=== PATIENT | male | born 1985 | race African-American/Black ===

== ENCOUNTER 2017-06-25 18:03 | Emergency (ER) | payer OTHER ==
[~2017-06-25] VITALS: Ht 170.2 cm; Wt 81.6 kg
--- NOTE | ~2017-06-25 | CR213 ---
[facility] A Service of [facility] & [facility] RADIOLOGY TEXT RESULTS PATIENT: ELIAS CONNORS LOCATION: CFTX : 81 UNIT #: [id number] AGE: [address]: Elana Tim SEX: M ORDER DR: [id number] [facility] [address] [place], [place] [address] [id number] E MR#: [id number] Acc #: [id number] NAME: ELIAS CONNORS : 1985 SEX: M STUDY DATE/TIME: 06/25/2017 18:56 UNIT: [facility] ROOM: STUDY DESCRIPTION: CR Ribs Unilateral 2 View Rt Attending Physician: Elana Tim P.A.-C. Ordering Physician: Elana Tim P.A.-C. Primary Care Physician: No Primary Care Physician MEDICAL IMAGING REPORT This report is preliminary unless electronic signature is present EXAM Right ribs. HISTORY Right posterior rib and back pain for the past week. No known trauma TECHNIQUE 4 views of the ribs were obtained. FINDINGS Chest x-ray obtained as part rib series is clear. There is no evidence of rib fracture, bone destruction or pleural thickening. No pneumothorax is seen. IMPRESSION Normal. Dictated by... Isaac Bone M.D. THIS IS AN ELECTRONICALLY VERIFIED REPORT Isaac Bone M.D. at 06/27/2017 7:08 AM RLF/gz TD: 06/26/2017 09:21 JOB #: [id number] MEDICAL IMAGING REPORT Page 1 of 1 COPY
--- NOTE | ~2017-06-25 | CR243 ---
[facility] A Service of [facility] & [facility] RADIOLOGY TEXT RESULTS PATIENT: ELIAS CONNORS LOCATION: CFTX : 81 UNIT #: [id number] AGE: [address]: Elana Tim SEX: M ORDER DR: [id number] [facility] [address] [place], [place] [address] [id number] E MR#: [id number] Acc #: [id number] NAME: ELIAS CONNORS : 1985 SEX: M STUDY DATE/TIME: 06/25/2017 18:55 UNIT: [facility] ROOM: STUDY DESCRIPTION: CR Thoracic Spine 3 Views Attending Physician: Elana Tim P.A.-C. Ordering Physician: Elana Tim P.A.-C. Primary Care Physician: No Primary Care Physician MEDICAL IMAGING REPORT This report is preliminary unless electronic signature is present EXAM Thoracic spine series. HISTORY Back pain for the past week with no known trauma TECHNIQUE Three views of the thoracic spine were obtained. FINDINGS AP and lateral examination of the dorsal segment shows normal mineralization and a satisfactory anatomical dorsal kyphosis. All body heights, interspaces, and posterior elements are normal anatomically without any indication of malignancy, trauma, unusual paraspinal soft tissue density mass, or congenital defect. IMPRESSION Normal thoracic spine. Dictated by... Isaac Bone M.D. THIS IS AN ELECTRONICALLY VERIFIED REPORT Isaac Bone M.D. at 06/27/2017 7:08 AM BULL/jess TD: 06/26/2017 09:26 JOB #: [id number] MEDICAL IMAGING REPORT Page 1 of 1 COPY
[2017-06-25 18:52] LABS: URINE SOURCE CLEAN CATCH
[2017-06-25 18:56] LABS: URINE APPEARANCE CLEAR; URINE BILIRUBIN NEG (NEG); URINE BLOOD NEG (NEG); URINE COLOR YELLOW; URINE GLUCOSE NEG (NEG); URINE KETONE TRACE (NEG); URINE LEUKOCYTE ESTERASE NEG (NEG); URINE NITRATE NEG (NEG); URINE PH 6.5 (5-8); URINE PROTEIN NEG (NEG); URINE SPECIFIC GRAVITY 1.026 (1.003-1.035)
[2017-06-25 19:04] LABS: CULTURE INDICATED? NO
== END 2017-06-25 20:00 | disposition home or self-care (01) ==
LOC: CED 18:03 → CFTX 18:03
PROVIDERS: Physician Assistant
DX: S23.3XXA Sprain of ligaments of thoracic spine, initial encounter (principal); J45.909 Unspecified asthma, uncomplicated; X50.0XXA Overexertion from strenuous movement or load, initial encounter; Y92.009 Unspecified place in unspecified non-institutional (private) residence as the place of occurrence of the external cause
CPT/HCPCS: 71100; 72072; 81003; 96372; 99283; J1885